=== PATIENT | female | born 1965 | race Two or more races ===

== ENCOUNTER → 2018-08-27 | Outpatient (CLI) | payer OTHER | END | disposition home or self-care (01) | LOC: SONOGRAMA 10:25 | DX: R22.2 Localized swelling, mass and lump, trunk (principal) ==

== ENCOUNTER 2020-05-29 10:55 | Outpatient (CLI) | payer OTHER | END 2020-05-29 11:00 | disposition home or self-care (01) | LOC: SONOGRAMA 10:55 | PROVIDERS: ATTEND Pathology Anatomic Pathology & Clinical Pathology | DX: D34 Benign neoplasm of thyroid gland (principal); E04.1 Nontoxic single thyroid nodule ==